=== PATIENT | female | born 1945 | race Caucasian/White ===

== ENCOUNTER 2020-12-01 20:15 | Emergency (ER) | payer OTHER, BC ==
[2020-12-01] MEDS ORDERED: MORPHINE 2 MG/ML SYR ONE ×2 (20:44→22:25)
[2020-12-01] MEDS ORDERED: ONDANSETRON 4 MG/2 ML VIAL ONE (20:44)
[2020-12-01 20:51] LABS: Protime INR 1.12
[2020-12-01 20:52] LABS: Absolute Lymphocytes (CBC) 1.5 K/uL (0.7-4.9); Basophils % 0.5 % (0-1.3); Lymphocytes % 12.5 % (15.3-44.8); MPV 10.1 fL (7.6-11.3); RBC Red Blood Cell Count 3.83 M/uL (3.86-4.86)
[2020-12-01 21:15] LABS: ALT/SGPT 24 U/L (12-78); AST/SGOT 22 U/L (15-37); Albumin 3.1 g/dL (3.4-5.0); Alkaline Phosphatase 110 U/L (45-117); BUN Blood Urea Nitrogen 16 mg/dL (7-18); Bicarbonate 25 mmol/L (21-32); Bilirubin Direct 0.2 mg/dL (0-0.2); Bilirubin Total 0.4 mg/dL (0.2-1.0); Glucose Level 78 mg/dL (74-106); NT PRO-BNP 720 pg/mL (<125); Potassium 3.8 mmol/L (3.5-5.1); Protein, Total 7.2 g/dL (6.4-8.2); Sodium Level 144 mmol/L (136-145); Troponin (Emerg Dept Use Only) < 0.02 ng/mL (0.0-0.045)
[2020-12-01] MEDS ORDERED: KETOROLAC 30 MG/ML INJ ONE (22:59)
--- NOTE | 2020-12-01 23:18 | ER ---
Nurse's Notes [facility] Name: Charley Hart Age: 74 yrs Sex: Female : 1945 Arrival Date: 12/01/2020 Time: 20:16 Bed 8 Private MD: Diagnosis: Fall on same level from slipping, tripping and stumbling;Pain in left hip;Pain in left knee Presentation: 12/01 20:17 Chief complaint: EMS states: Reports pt fell on the boat deck about 30 minutes ago, pt ea reports she fell on her left hip and slid to the boat, reports pain to left hip, lower back and left leg. Denies hitting head, no LOC. Care prior to arrival: None. Mechanism of Injury: Fall from standing position. Trauma event details: Injury occurred in the [facility], Injury occurred: in a recreational area. Injury occurred: December 01, 2020. 20:17 Acuity: DECLAN 3 ea 20:17 Method Of Arrival: EMS: [facility] ea 20:23 Coronavirus screen: At this time, the client does not indicate any symptoms associated ea with coronavirus-19. Ebola Screen: No symptoms or risks identified at this time. Initial Sepsis Screen: Does the patient meet any 2 criteria? No. Patient's initial sepsis screen is negative. Does the patient have a suspected source of infection? No. Patient's initial sepsis screen is negative. Risk Assessment: Do you want to hurt yourself or someone else? Patient reports no desire to harm self or others. Onset of symptoms was December 01, 2020. 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 - Social history:: Smoking status: Patient denies any tobacco usage or history of. Screenin:19 Abuse screen: Denies threats or abuse. Nutritional screening: No deficits noted. ea Tuberculosis screening: No symptoms or risk factors identified. Fall Risk None identified. Primary Survey: 20:19 NO uncontrolled hemorrhage observed. A: The patient is alert. Airway: patent. ea Breathing/Chest: Respiratory pattern: regular, Respiratory effort: spontaneous, unlabored. Circulation: Skin color: pink, Skin temperature: warm. Disability Alert. Exposure/Environment: A warming method has been applied: A warm blanket has been provided to the patient. Assessment: 20:20 General: Appears in no apparent distress. Behavior is appropriate for age. Pain: ea Complains of pain in low back area, left low back, left lower back and left leg. Neuro: Level of Consciousness is awake, alert, obeys commands, Oriented to person, place, time. Cardiovascular: Patient's skin is warm and dry. Respiratory: Airway is patent Respiratory effort is even, unlabored, Respiratory pattern is regular, symmetrical. Derm: Skin is pink, warm \T\ dry. 22:17 Reassessment: Patient and/or family updated on plan of care and expected duration. Pain ea level reassessed. Patient is alert, oriented x 3, equal unlabored respirations, skin warm/dry/pink. 23:38 Reassessment: Patient and/or family updated on plan of care and expected duration. Pain ea level reassessed. Patient is alert, oriented x 3, equal unlabored respirations, skin warm/dry/pink. 12/02 00:00 Reassessment: Patient and/or family updated on plan of care and expected duration. Pain ea level reassessed. Patient is alert, oriented x 3, equal unlabored respirations, skin warm/dry/pink. Discharge instruction given to patient, verbalized the understanding of instruction. Pt left ED via wheelchair awaiting in lobby for significant other. Vital Signs: 12/01 20:20 BP 145 / 88; Pulse 69; Resp 18; Temp 98.3; Pulse Ox 100% ; Weight 95.25 kg; Height 5 ea ft. 5 in. (165.10 cm); 22:17 BP 130 / 60; Pulse 81; Resp 18; Pulse Ox 97% ; ea 23:38 BP 130 / 65; Pulse 78; Resp 18; Pulse Ox 98% on R/A; ea 20:20 Body Mass Index 34.95 (95.25 kg, 165.10 cm) ea [place] Coma Score: 20:20 Eye Response: spontaneous(4). Verbal Response: oriented(5). Motor Response: obeys ea commands(6). Total: 15. Trauma Score (Adult): 20:20 Eye Response: spontaneous(1); Verbal Response: oriented(1); Motor Response: obeys ea commands(2); Systolic BP: > 89 mm Hg(4); Respiratory Rate: 10 to 29 per min(4); Gile Score: 15; Trauma Score: 12 ED Course: 20:16 Patient arrived in ED. am2 20:17 Temi Ellis, RN is Primary Nurse. ea 20:18 Best Matson PA is PHCP. cp 20:18 Vj Blanco MD is Attending Physician. cp 20:19 Triage completed. ea 20:19 Patient has correct armband on for positive identification. Bed in low position. Call ea light in reach. Side rails up X2. Pulse ox on. NIBP on. 20:20 Patient maintains SpO2 saturation greater than 95% on room air. ea 20:22 Thermoregulation: warm blanket given to patient. ea 20:23 Arm band placed on right wrist. Patient placed in an exam room, on a stretcher, on ea pulse oximetry. 20:30 Inserted saline lock: 20 gauge in left antecubital area, using aseptic technique. ea 21:09 XRAY Pelvis In Process Unspecified. EDMS 21:09 XRAY Femur LEFT In Process Unspecified. EDMS 21:09 XRAY Chest (1 view) In Process Unspecified. EDMS 21:52 CT Abd/Pelvis - IV Contrast Only In Process Unspecified. EDMS 23:39 No provider procedures requiring assistance completed. ea 07 00:00 IV discontinued, intact, bleeding controlled, No redness/swelling at site. Pressure ea dressing applied. Administered Medications: 12/01 20:30 Drug: morphine 2 mg Route: IVP; Site: left antecubital; ea 20:30 Drug: Zofran (Ondansetron) 4 mg Route: IVP; Site: left antecubital; ea 23:37 Follow up: Response: No adverse reaction ea 22:16 Drug: morphine 2 mg Route: IVP; Site: left antecubital; ea 23:37 Follow up: Response: No adverse reaction ea 22:47 Drug: TORadol - Ketorolac 15 mg Route: IVP; Site: left antecubital; ea 23:37 Follow up: Response: No adverse reaction; Pain is decreased ea Outcome: 23:18 Discharge ordered by . cp 23:59 Discharged to home ambulatory, pt awaiting for family in the lobby ea 23:59 Condition: stable 23:59 Discharge instructions given to patient, Instructed on discharge instructions, follow up and referral plans. medication usage, Demonstrated understanding of instructions, follow-up care, medications, Prescriptions given X 1. 07 00:02 Patient left the ED. ea Signatures: Dispatcher [employer] EDMS Best Matson PA PA cp Moreno, Amanda am2 Antunez, Elena RN RN ea
--- NOTE | 2020-12-01 23:18 | EDPHYS ---
Physician Documentation [facility] Name: Charley Hart Age: 74 yrs Sex: Female : 1945 Arrival Date: 12/01/2020 Time: 20:16 Bed 8 Private MD: ED Physician Vj Blanco HPI: 12/01 20:20 This 74 yrs old Female presents to ER via EMS with complaints of Fall Injury, Hip Pain, cp Leg Pain. 20:20 Details of fall: The patient fell from an upright position, while standing, and struck boat dock. Onset: The symptoms/episode began/occurred just prior to arrival. Associated injuries: The patient sustained left hip. 20:20 Patient denies striking head, denies LOC and/or syncope. Patient reports losing balance cp while on boat dock. 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 - Social history:: Smoking status: Patient denies any tobacco usage or history of. ROS: 20:29 Constitutional: Negative for body aches, chills, fever. cp 20:29 Neck: Negative for stiffness. 20:29 Cardiovascular: Negative for chest pain, palpitations. 20:29 Respiratory: Negative for cough, shortness of breath, wheezing. 20:29 Back: Positive for radiated pain, of the left low back. 20:29 MS/extremity: Positive for decreased range of motion, pain, tenderness, of the left hip. 20:29 Neuro: Negative for altered mental status, headache, loss of consciousness, syncope, weakness. 20:29 All other systems are negative. Exam: 20:35 ECG was reviewed by the Attending Physician. cp 20:37 Constitutional: The patient appears in no acute distress, alert, awake, cp non-diaphoretic, non-toxic, well developed, well nourished, obese. 20:37 Head/Face: Normocephalic, atraumatic. cp 20:37 Eyes: Periorbital structures: appear normal, Conjunctiva: normal, no exudate, no injection, Sclera: no appreciated abnormality, Lids and lashes: appear normal, bilaterally. 20:37 ENT: External ear(s): are unremarkable, Nose: is normal, Mouth: Lips: moist, Oral mucosa: moist, Posterior pharynx: Airway: no evidence of obstruction, patent. 20:37 Neck: ROM/movement: is normal, is supple, without pain, no range of motions limitations. 20:37 Chest/axilla: Inspection: normal, Palpation: is normal, no crepitus, no tenderness. 20:37 Cardiovascular: Rate: normal, Rhythm: regular, Edema: is not appreciated, JVD: is not appreciated. 20:37 Respiratory: the patient does not display signs of respiratory distress, Respirations: normal, no use of accessory muscles, no retractions, labored breathing, is not present, Breath sounds: are clear throughout, no decreased breath sounds. 20:37 Abdomen/GI: Inspection: abdomen appears normal, Palpation: abdomen is soft and non-tender, in all quadrants. 20:37 Back: pain, that is moderate, of the left low back, ROM is painful, vertebral tenderness, is not appreciated, Straight leg raises: left lower extremity illicits pain. 20:37 Musculoskeletal/extremity: Extremities: grossly normal except: noted in the left upper leg: pain, tenderness, There is no evidence of decreased ROM, deformity, swelling, ROM: limited passive range of motion due to pain, in the left hip and left knee, Perfusion: the extremity is normally perfused throughout, Sensation intact. Vital Signs: 20:20 BP 145 / 88; Pulse 69; Resp 18; Temp 98.3; Pulse Ox 100% ; Weight 95.25 kg; Height 5 ea ft. 5 in. (165.10 cm); 22:17 BP 130 / 60; Pulse 81; Resp 18; Pulse Ox 97% ; ea 23:38 BP 130 / 65; Pulse 78; Resp 18; Pulse Ox 98% on R/A; ea 20:20 Body Mass Index 34.95 (95.25 kg, 165.10 cm) ea [place] Coma Score: 20:20 Eye Response: spontaneous(4). Verbal Response: oriented(5). Motor Response: obeys ea commands(6). Total: 15. Trauma Score (Adult): 20:20 Eye Response: spontaneous(1); Verbal Response: oriented(1); Motor Response: obeys ea commands(2); Systolic BP: > 89 mm Hg(4); Respiratory Rate: 10 to 29 per min(4); Toya Score: 15; Trauma Score: 12 MDM: 20:22 Patient medically screened. cp 21:00 Differential diagnosis: closed head injury, contusion, fracture, laceration, multiple cp trauma. 23:15 Data reviewed: vital signs, nurses notes, lab test result(s), EKG, radiologic studies, cp CT scan, plain films. 23:15 Test interpretation: by ED physician or midlevel provider: ECG, plain radiologic cp studies. Counseling: I had a detailed discussion with the patient and/or guardian regarding: the historical points, exam findings, and any diagnostic results supporting the discharge/admit diagnosis, lab results, radiology results, to return to the emergency department if symptoms worsen or persist or if there are any questions or concerns that arise at home. Response to treatment: Pain improved. ED course: VSS. Labs, EKG and radiology studies reviewed. Radiology studies negative for acute trauma. Patient observed ambulating with use of walker. Will discharge to home for continued monitoring. 12/01 20:25 Order name: Basic Metabolic Panel; Complete Time: 21:19 cp 12/01 21:19 Interpretation: Normal except: CL 112; GFR 65. cp 12/01 20:25 Order name: CBC with Diff; Complete Time: 21:19 cp 12/01 21:20 Interpretation: Normal except: WBC 12.00; RBC 3.83; HGB 11.0; HCT 34.0; RDW 15.5; LIAT% cp 80.2; LYM% 12.5; NEUT A 9.6. 12/01 20:25 Order name: LFT's; Complete Time: 21:19 cp 12/01 20:25 Order name: Magnesium; Complete Time: 21:19 cp 12/01 20:25 Order name: NT PRO-BNP; Complete Time: 21:19 cp 12/01 20:25 Order name: PT-INR; Complete Time: 21:19 cp 12/01 20:25 Order name: XRAY Pelvis cp 12/01 20:25 Order name: XRAY Femur LEFT cp 12/01 20:25 Order name: Troponin (emerg Dept Use Only); Complete Time: 21:19 cp 12/01 21:20 Interpretation: TROPED < 0.02; Reviewed. cp 12/01 20:25 Order name: XRAY Chest (1 view) cp 12/01 20:25 Order name: CT Abd/Pelvis - IV Contrast Only cp 12/01 20:56 Order name: CREATININE WHOLE BLOOD; Complete Time: 21:19 EDMS 12/01 23:47 Order name: Urine Dipstick--Ancillary (enter results) tt3 12/01 20:25 Order name: IV; Complete Time: 20:49 cp 12/01 20:25 Order name: EKG; Complete Time: 20:25 cp 12/01 20:25 Order name: Cardiac monitoring; Complete Time: 20:49 cp 12/01 20:25 Order name: EKG - Nurse/Tech; Complete Time: 20:49 cp 12/01 20:25 Order name: Labs collected and sent; Complete Time: 20:49 cp 12/01 20:25 Order name: O2 Per Protocol; Complete Time: 20:49 cp 12/01 20:25 Order name: O2 Sat Monitoring; Complete Time: 20:49 cp 12/01 22:41 Order name: Urine Dipstick-Ancillary (obtain specimen); Complete Time: 23:46 cp EC:35 Rate is 69 beats/min. Rhythm is regular. MT interval is normal. QRS interval is normal. cp QT interval is normal. Interpreted by me. Reviewed by me. Administered Medications: 20:30 Drug: morphine 2 mg Route: IVP; Site: left antecubital; ea 20:30 Drug: Zofran (Ondansetron) 4 mg Route: IVP; Site: left antecubital; ea 23:37 Follow up: Response: No adverse reaction ea 22:16 Drug: morphine 2 mg Route: IVP; Site: left antecubital; ea 23:37 Follow up: Response: No adverse reaction ea 22:47 Drug: TORadol - Ketorolac 15 mg Route: IVP; Site: left antecubital; ea 23:37 Follow up: Response: No adverse reaction; Pain is decreased ea Disposition: 12/02 00:05 Chart complete. cp 05:33 Co-signature as Attending Physician, Vj Blanco MD. [email or web address] Disposition: 12/01/20 23:18 Discharged to Home. Impression: Fall on same level from slipping, tripping and stumbling, Pain in left hip, Pain in left knee. - Condition is Stable. - Discharge Instructions: Elastic Bandage and RICE, Knee Pain, Hip Pain. - Prescriptions for Ibuprofen 800 mg Oral Tablet - take 1 tablet by ORAL route every 8 hours As needed take with food; 30 tablet. - Medication Reconciliation Form, Thank You Letter, Antibiotic Education, Prescription Opioid Use form. - Follow up: Private Physician; When: 2 - 3 days; Reason: Recheck today's complaints. - Problem is new. - Symptoms have improved. Signatures: Dispatcher [employer] EDMS Best Matson PA PA cp Antunez, Elena, RN RN ea Holmes, Maurice, MD MD [email or web address] Corrections: (The following items were deleted from the chart) 00:02 02 23:18 12/01/2020 23:18 Discharged to Home. Impression: Fall on same level from ea slipping, tripping and stumbling; Pain in left hip; Pain in left knee. Condition is Stable. Forms are Medication Reconciliation Form, Thank You Letter, Antibiotic Education, Prescription Opioid Use. Follow up: Private Physician; When: 2 - 3 days; Reason: Recheck today's complaints. Problem is new. Symptoms have improved. cp
[2020-12-02 00:17] VITALS: TEMP 98.3
[2020-12-02 00:20] VITALS: BP 130/65; O2SAT 98
[2020-12-02 01:34] LABS: Urine Blood NEGATIVE (NEG); Urine Glucose NEGATIVE (NEG); Urine Protein NEGATIVE (NEG)
--- NOTE | 2020-12-02 12:45 | RAD REPORT ---
EXAM DESCRIPTION: RAD - Chest Single View - 12/01/2020 9:09 pm CLINICAL HISTORY: fall, hip pain Chest pain. COMPARISON: No comparisons FINDINGS: Portable technique limits examination quality. The lungs are grossly clear. The heart is moderately enlarged. No displaced fractures.
--- NOTE | 2020-12-02 12:47 | RAD REPORT ---
EXAM DESCRIPTION: RAD - Pelvis - 12/01/2020 9:09 pm CLINICAL HISTORY: fall Fall, left hip pain COMPARISON: Abdomen Pelvis W Contrast dated 12/01/2020 FINDINGS: No acute fracture or dislocation.
--- NOTE | 2020-12-02 12:48 | RAD REPORT ---
EXAM DESCRIPTION: RAD - Femur Left - 12/01/2020 9:09 pm CLINICAL HISTORY: PAIN COMPARISON: No comparisons FINDINGS: No acute fracture or dislocation seen. Left total knee arthroplasty noted.
--- NOTE | 2020-12-03 12:03 | RAD REPORT ---
EXAM DESCRIPTION: CT ABDOMEN AND PELVIS WITH CONTRAST CLINICAL HISTORY: Fall, low back/left hip pain COMPARISON: None Available. TECHNIQUE: CT of the abdomen and pelvis performed following IV administration of iodinated contras t. FINDINGS: Lung Bases: The visualized lung bases are clear. Small pericardial effusion. Bones: No destructive bone lesions identified. Mild degenerative facet arthropathy. Healing fractures of the left seventh through ninth ribs. Abdomen: Liver: The liver has normal size and density. No intrahepatic biliary dilatation. Gallbladder: Prior cholecystectomy. Spleen, Pancreas, and Adrenal Glands: The spleen, pancreas, and adrenal glands are unremarkable. Kidneys: No hydronephrosis or obstructing calculus. Right renal cyst. Vasculature: Aortoiliac atherosclerosis. IVC is unremarkable. The portal vein is patent. The proxim al visceral and renal arteries are patent. Stomach: Postoperative change of the stomach. Other: No free intraperitoneal air. No free fluid or lymphadenopathy. Pelvis: Bladder: Urinary bladder is unremarkable. Bowel: No dilated loops of large or small bowel. Appendix: Not identified. Pelvis: Uterus is not enlarged. IMPRESSION: 1. No acute traumatic, inflammatory or obstructive process identified. This exam was performed according to our departmental dose-optimization program, which includes autom ated exposure control, adjustment of the mA and/or kV according to patient size and/or use of iterati ve reconstruction technique. Electronically signed by: Dayton Blake 12/01/2020 10:20 PM [employer] Due to temporary technical issues with the PACS/Fluency reporting system, reports are being signed by the in house radiologist without review as a courtesy to ensure prompt reporting. The interpreting r adiologist is fully responsible for the content of the report.
== END 2020-12-02 00:02 | disposition home or self-care (01) ==
LOC: ER 20:15
DX: M25.552 Pain in left hip (principal); M25.562 Pain in left knee; W01.0XXA Fall on same level from slipping, tripping and stumbling without subsequent striking against object, initial encounter; Y93.89 Activity, other specified; Y92.89 Other specified places as the place of occurrence of the external cause; I10 Essential (primary) hypertension
CPT/HCPCS: 93005; 85025; 80048; 36415; 83735; 85610; 82565; 80076; 81003; 84484; 83880; 74177; 71045; 72170; 73552; 96375; 96374; 99284; Q9967; J2270 ×2; J2405